=== PATIENT | female | born 1960 | race Caucasian/White ===

== ENCOUNTER 2024-05-28 19:50 | Emergency (ER) | payer MEDICAID ==
[~2024-05-28] VITALS: Ht 152.4 cm; Wt 81.2 kg
[2024-05-28 20:12] VITALS: BP 154/70; PULSE 66; RESP 16; TEMP 97.4; O2SAT 97
[2024-05-28 20:32] VITALS: O2SAT 97
[2024-05-28 21:21] LABS: BASOPHILS % (AUTO) 0.7 % (0.0-2.0); EOSINOPHILS % (AUTO) 0.7 % (0.0-4.0); HEMATOCRIT 36.5 % (36-48); HEMOGLOBIN 12.3 g/dL (12.0-16.0); LYMPHOCYTES # (AUTO) 1.9 K/uL (2.5-16.5); LYMPHOCYTES % (AUTO) 38.6 % (20.5-51.1); MEAN CORPUSCULAR HEMOGLOBIN 32 pg (27-31); MEAN CORPUSCULAR HGB CONC 34 g/dL (33-37); MEAN CORPUSCULAR VOLUME 95.8 fL (80-94); MONOCYTES # (AUTO) 0.5 K/uL (0.8-1.0); MONOCYTES % (AUTO) 9.2 % (1.7-9.3); NEUTROPHILS # (AUTO) 2.6 K/uL (1.8-7.7); NEUTROPHILS % (AUTO) 50.8 % (42.2-75.2); PLATELET COUNT (AUTO) 203 K/uL (140-450); RED BLOOD CELL COUNT(AUTO) 3.81 MIL/uL (4.20-5.40); RED CELL DISTRIBUTION WIDTH 13.8 % (11.6-13.7)
[2024-05-28 21:28] LABS: ANION GAP 11.3 (8-16); CALCIUM 9.2 mg/dL (8.5-10.1); CARBON DIOXIDE 28.4 mmol/L (21-32); CREATININE 0.7 mg/dL (0.6-1.3); POTASSIUM 3.7 mmol/L (3.5-5.1)
[2024-05-28] MEDS: KETOROLAC 30 MG/ML VIAL IM ONE (22:02)
[2024-05-28 22:07] LABS: ALBUMIN 3.5 g/dL (3.4-5.0); BILIRUBIN,DIRECT 0.1 mg/dL (0.0-0.3); TOTAL BILIRUBIN 0.3 mg/dL (0.0-1.0); TOTAL PROTEIN, SERUM 7.3 g/dL (6.4-8.2)
[2024-05-28] MEDS ORDERED: GABA300C PO (22:26)
[2024-05-28] MEDS ORDERED: KETO10TA2 PO (22:26)
[2024-05-28 23:02] VITALS: BP 154/70; PULSE 66; RESP 16; TEMP 97.4; O2SAT 97
== END 2024-05-28 23:03 | disposition home or self-care (01) ==
LOC: MED 19:50
DX: R22.43 Localized swelling, mass and lump, lower limb, bilateral (principal); M79.18 Myalgia, other site; R03.0 Elevated blood-pressure reading, without diagnosis of hypertension; E11.9 Type 2 diabetes mellitus without complications; Z79.899 Other long term (current) drug therapy
CPT/HCPCS: 36415; 71045; 72170; 80048; 80076; 83880; 84484; 85025; 93005; 93970; 96372; 99285; J1885; Q0092